=== PATIENT | male | born 1960 | race Caucasian/White ===

== ENCOUNTER 2022-03-15 15:11 | Outpatient (REF) | payer MEDICARE, SELFPAY ==
[2022-03-15 16:31] LABS: Abs Immature Grans 0.05 10^3/uL (0.0-0.06); Absolute Basophil Count 0.05 10^3/uL (0.0-0.2); Absolute Eosinophil Count 0.14 10^3/uL (0.0-0.7); Absolute Lymphocyte Count 1.85 10^3/uL (1.2-3.4); Absolute Monocyte Count 0.64 10^3/uL (0.1-0.8); Absolute Neutrophil Count 7.77 10^3/uL (1.2-6.7); Basophils % 0.5; Eosinophils % 1.3; HCT 49.6 % (40.0-50.0); HGB 16.4 g/dL (13.5-17.5); Immature Grans % 0.5; Lymphocytes % 17.6; MCH 32.3 pg (27.0-33.0); MCHC 33.1 % (32.0-36.0); MCV 98 fL (80-95); MPV 10.1 fL (8.0-11.0); Monocytes % 6.1; Platelet Count 311 10^3/uL (130-400); RBC 5.08 10^6/uL (4.36-5.78); RDW 13.3 % (11.8-14.1); RDW-SD 48.2 fL
[2022-03-15 17:07] LABS: ALT 43 U/L (16-63); AST 46 U/L (15-37); Albumin 4.1 g/dL (3.4-5.0); Alkaline Phosphatase 88 U/L (46-116); Anion Gap 7.1 mmol/L (3-11); BUN 12 mg/dL (7-18); Bilirubin, Total 0.5 mg/dL (0.2-1.0); CO2 30.9 mmol/L (21.0-32.0); CREATININE 1.1 mg/dL (0.70-1.30); Calcium 9.5 mg/dL (8.5-10.1); Chloride 99 mmol/L (98-107); Estimated GFR 77.33 (mL/min/1.73m2); Glucose 118 mg/dL (74-106); Potassium 4.7 mmol/L (3.5-5.1); Sodium 137 mmol/L (136-145); Total Protein 7.7 g/dL (6.4-8.2)
[2022-03-15 17:11] LABS: Hemoglobin A1C 5.6 % (<5.7)
== END 2022-03-15 15:12 | disposition home or self-care (01) ==
LOC: NCHCN 15:11
PROVIDERS: Visit Provider Nurse Practitioner Family
DX: I10 Essential (primary) hypertension (principal); R73.9 Hyperglycemia, unspecified
CPT/HCPCS: 80053; 83036; 85025

== ENCOUNTER 2022-07-12 13:20 | Emergency (ER) | payer MEDICARE, SELFPAY ==
[2022-07-12] VITALS (21 sets, daily range): BP systolic 91–123; BP diastolic 63–80; PULSE 79–246; RESP 14–37; TEMP 36.4; O2SAT 86–97
--- NOTE | 2022-07-12 13:15 | RT.EKG_ITS ---
APPROVED REPORT Exam: Resting ECG Reason for Exam: Chest Pain Patient Location: E HR:237 bpm ECG Measurements Heart Rate 237 AXIS NH 175 P 107 QRSd 126 QRS -62 QT [id number] T 94 QTc 0 Conclusion Wide-QRS tachycardia...V-rate>(220-age), QRSd>120 IVCD, consider RBBB...QRSd>120mS, terminal axis(90,270) Regular wide-complex tachycardia at a rate of 237 bpm. No prior for comparison. Concerning for V. t ach.
[2022-07-12] MEDS: Adenosine 6 MG/2 ML VIAL (13:40)
--- NOTE | 2022-07-12 13:54 | W.EDPROG ---
Date of service: 07/12/22 Time of Service: 13:54 Medical Decision Making This patient arrived during my shift and was cared for by an advanced practitioner. Please see her notes for complete details. In brief this is a 61 yo M w/history of tobacco use & HTN arriving via private vehicle in the setting of chest pain and lightheadedness. Initial ECG concerning for VT. Patient initially received adenosine * 2 (6mg & 12mg) to treat SVT w/aberrancy but had no pauses nor changes on continuous ECG. 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 Following infusion on 100mg of procainamide patient convert to NSR. Patient had not obvious ischemic changes on repeat ECG but given age and risk factors w/elevated tropoin likely secondary to type II NSTEMI patient transferred to [facility] for LHC & CCU-level care. Discharge Plan Disposition Patient Disposition: Transfer-Acute Inpatient Care Specific Acute Inpt Facility: [facility] Discharge Details Clinical Impression: V-tach, Non-ST elevation [place] (NSTEMI) Primary Care Provider: Megha Hinojosa ED Provider: Mayela Edmond Home Meds and New Rx's Prescriptions: No Action clonazepam 1 mg Tablet 1 mg PO TID Rx Instructions: 2mg at HS sildenafil 100 mg Tablet 100 mg PO DAILY PRN Rx Instructions: administer 30 minutes to 4 hours before activity cranberry 400 mg Capsule 400 mg PO DAILY Rx Instructions: administer with a meal lisinopril-hydrochlorothiazide 10-12.5 mg Tablet 1 tab PO DAILY testosterone cypionate 200 mg/mL Oil 200 mg IM Q2W Discharge Data Discharge Date/Time-TO BE ENTERED AT DEPARTURE: 07/12/22 16:18
--- NOTE | 2022-07-12 14:00 | RT.EKG_ITS ---
APPROVED REPORT Exam: Resting ECG Reason for Exam: [facility] Patient Location: E HR:98 bpm ECG Measurements Heart Rate 98 AXIS NJ 123 P 59 QRSd 92 QRS 85 QT 312 T -52 QTc 398 Conclusion Sinus rhythm...normal P axis, V-rate 60- 99 Abnormal T, consider ischemia, diffuse leads...T <-0.20mV, ant/lat/inf Narrow complex normal sinus rhythm at a rate of 98. Normal axis. Inferior T wave inversions. Mild ST segment elevation in aVL. Compared to prior sinus rhythm has replaced likely V. tach.
[2022-07-12] MEDS: MAGNESIUM SULFATE 2 GM/50 ML BAG IVPB (14:09)
[2022-07-12 14:19] LABS: Abs Immature Grans 0.11 10^3/uL (0.0-0.06); Absolute Basophil Count 0.07 10^3/uL (0.0-0.2); Absolute Eosinophil Count 0.03 10^3/uL (0.0-0.7); Absolute Neutrophil Count 14.52 10^3/uL (1.2-6.7); Basophils % 0.4; Eosinophils % 0.2; HCT 47.8 % (40.0-50.0); HGB 15.8 g/dL (13.5-17.5); Immature Grans % 0.6; Lymphocytes % 5.3; MCH 31.9 pg (27.0-33.0); MCHC 33.1 % (32.0-36.0); MCV 96 fL (80-95); MPV 8.9 fL (8.0-11.0); Monocytes % 8.2; Neutrophils % 85.3; Platelet Count 276 10^3/uL (130-400); RBC 4.96 10^6/uL (4.36-5.78); RDW 13.8 % (11.8-14.1); RDW-SD 49.5 fL; WBC 17.02 10^3/uL (4.4-10.8)
--- NOTE | 2022-07-12 14:22 | ED.GENADUL_ITS ---
Discharge Plan Disposition Patient Disposition: Transfer-Acute Inpatient Care Specific Acute Inpt Facility: [facility] Discharge Details Clinical Impression: V-tach, Non-ST elevation [place] (NSTEMI) Primary Care Provider: Megha Hinojosa ED Provider: Mayela Edmond Home Meds and New Rx's Prescriptions: No Action clonazepam 1 mg Tablet 1 mg PO TID Rx Instructions: 2mg at HS sildenafil 100 mg Tablet 100 mg PO DAILY PRN Rx Instructions: administer 30 minutes to 4 hours before activity cranberry 400 mg Capsule 400 mg PO DAILY Rx Instructions: administer with a meal lisinopril-hydrochlorothiazide 10-12.5 mg Tablet 1 tab PO DAILY testosterone cypionate 200 mg/mL Oil 200 mg IM Q2W Discharge Data Discharge Date/Time-TO BE ENTERED AT DEPARTURE: 07/12/22 16:18 Medical Decision Making This 61-year-old male presents with report of chest pain and palpitations EKG was obtained 6 patient has evidence of suspected ventricular tachycardia on the in lead V4 V5 And looks like a narrow complex tachycardia Case is discussed with Dr. Barnes, Please see his documentation Initially we tried 6 mg subsequent by 12 mg of adenosine There is no responsiveness I then ordered 150 mg of amiodarone, however can consider for possible this atrial fibrillation with superimposed WPW, procainamide was ordered Patient received 100 mg of IV procainamide for 5 minutes and converted to normal sinus rhythm, he does have diffuse T wave inversions, his chest pain has resolved at this time He remained alert and oriented throughout the entirety of this evaluation Patient had a subsequent run of 6 beats of ventricular tachycardia Sinus rhythm Magnesium is 1.6, given 2 g of mag Potassium is 6.2, 66 4 g Calcium and IV, 10 mg of insulin IV, and 25 g of dextrose Check fingersticks every hour [facility] was consulted and Dr. Gotti is excepted patient in transfer Troponin resulted at 1446 Treat as non-STEMI as does not currently meet STEMI criteria. Will initiate heparin bolus and infusion for ACS, Plavix 600 mg, aspirin 324 Confirmed no risk factors for bleeding Full CODE STATUS, confirmed continue IV fluids at 100/cc an hour We will continue to check glucose every hour Denies any chest pain on reassessment, vitals have remained stable HPI General Date/Time Provider Initiated Documentation: 07/12/22 13:28 . HPI Narrative: This 61-year-old gentleman presents with palpitations/racing heart, has had chest pain indigestion throughout the day with lightheadedness. Denies history of similar symptoms in the past. Denies any new medications or alcohol. States he feels nauseous. Has some substernal chest pain information. Related Data Home Medications Medication Instructions Recorded Confirmed clonazepam 1 mg tablet 1 mg PO TID 07/12/22 07/12/22 cranberry 400 mg capsule 400 mg PO DAILY 07/12/22 07/12/22 lisinopril 10 1 tab PO DAILY 07/12/22 07/12/22 mg-hydrochlorothiazide 12.5 mg tablet sildenafil 100 mg tablet 100 mg PO DAILY PRN 07/12/22 07/12/22 testosterone cypionate 200 mg/mL 200 mg IM Q2W 07/12/22 07/12/22 intramuscular oil Allergies Allergy/AdvReac Type Severity Reaction Status Date / Time alprazolam [From Xanax] Allergy Unverified 07/12/22 15:14 diazepam [From Valium] Allergy Unverified 07/12/22 15:14 ibuprofen Allergy Unverified 07/12/22 13:27 methadone Allergy Unverified 07/12/22 13:27 nebivolol Allergy Unverified 07/12/22 13:27 prednisone Allergy Unverified 07/12/22 15:14 General Stated Complaint: Chest Pain MARISELA: 3 PFSH All Active Problems (Updated 07/14/22 @ 13:50 by BERNARD Howard) V-tach (Chronic) Non-ST elevation [place] (NSTEMI) (Acute) Social History Smoking/Tobacco Use Status: Current every day Tobacco Type: cigarettes Smoking risk assessment performed?: Yes Alcohol Intake: current Alcohol Intake frequency: holidays/special occasions only Substance use type: does not use Do you feel safe at home: Yes Do you feel safe in your relationship?: Yes Exam Narrative Exam Narrative: Patient is alert and oriented, diaphoretic, pupils equal round reactive to light and accommodation, lungs clear to auscultation, tachycardic, no abdominal tenderness, distal pulses intact, no calf swelling or tenderness, Course Vital Signs Vital signs: Vital Signs Temperature 36.4 C L 07/12/22 13:24 Pulse 239 H 07/12/22 13:24 Respiratory Rate 18 07/12/22 13:24 Blood Pressure 121/78 07/12/22 13:24 Pulse Oximetry 94 07/12/22 13:24 Temperature 36.4 C L 07/12/22 13:24 Pulse 94 H 07/12/22 14:14 Respiratory Rate 18 07/12/22 14:14 Respiratory Effort Normal, Non-Labored 07/12/22 13:26 Blood Pressure 108/76 07/12/22 14:14 Pulse Oximetry 97 07/12/22 14:14 Oxygen Delivery Method Nasal Cannula 07/12/22 14:14 Oxygen Flow Rate 2 07/12/22 14:14 Lab/Test Results Lab/Test Results: Laboratory Tests Range/Units 07/12/22 14:12 WBC (4.4-10.8) 10^3/uL 17.02 H RBC (4.36-5.78) 10^6/uL 4.96 Hgb (13.5-17.5) g/dL 15.8 Hct (40.0-50.0) % 47.8 MCV (80-95) fL 96 H MCH (27.0-33.0) pg 31.9 MCHC (32.0-36.0) % 33.1 RDW (11.8-14.1) % 13.8 Plt Count (130-400) 10^3/uL 276 MPV (8.0-11.0) fL 8.9 Immature Gran % 0.6 Neutrophils % 85.3 Lymphocytes % 5.3 Monocytes % 8.2 Eosinophils % 0.2 Basophils % 0.4 Nucleated RBC % (0.0-0.3) % 0.0 Absolute Neutrophils (1.2-6.7) 10^3/uL 14.52 H Absolute Lymphocytes (1.2-3.4) 10^3/uL 0.90 L Absolute Monocytes (0.1-0.8) 10^3/uL 1.40 H Absolute Eosinophils (0.0-0.7) 10^3/uL 0.03 Absolute Basophils (0.0-0.2) 10^3/uL 0.07 Critical Care Time Critical Care Time Attestation: Approximately 60 minutes of critical care time secondary to telemetry monitoring, antiarrhythmics secondary to ventricular tachycardia, diagnostic blood work, cardiology consultation, IV heparinization, clopidogrel loading, aspirin, diagnostic blood work interpretation, and ultimately transfer to tertiary care center for further evaluation
[2022-07-12 14:37] LABS: ALT 95 U/L (16-63); AST 77 U/L (15-37); Albumin 3.6 g/dL (3.4-5.0); Alkaline Phosphatase 94 U/L (46-116); Anion Gap 7.8 mmol/L (3-11); BUN 27 mg/dL (7-18); Bilirubin, Total 1.1 mg/dL (0.2-1.0); CO2 29.2 mmol/L (21.0-32.0); CREATININE 1.8 mg/dL (0.70-1.30); Calcium 8.9 mg/dL (8.5-10.1); Chloride 99 mmol/L (98-107); Estimated GFR 42.82 (mL/min/1.73m2); Glucose 155 mg/dL (74-106); Magnesium 1.6 mg/dL (1.8-2.4); Sodium 136 mmol/L (136-145)
--- NOTE | 2022-07-12 14:37 | NUR.NOTE ---
pt brought back to room 7 from triage when ekg was not able to be obtained in triage, cardiac care unit nurse showing HR in the 230's and patient becoming diaphoretic. pt quickly moved to room 3 and MD Barnes and BERNARD Edmond made aware. Pt placed on defibrillator pads, and cardiac care unit nurse. 2 large bore IVs placed. BERNARD Edmond at bedside. ekg obtained. question of vtach vs SVT. 6mg adenosine administered with no effect, verbal order for 12mg adenosine administered with no effect. Verbal order for 150mg amiodarone started but quickly discontinued and changed to 100mg Procainamide IVP, which was administered with good effect. pt remains on cardiac care unit nurse. report has been handed off to ELIAN Huang
[2022-07-12 14:43] LABS: Potassium 6.2 mmol/L (3.5-5.1); Troponin I 1443 ng/L (<or=60)
[2022-07-12 15:16] LABS: PTT Activated 26.7 sec (21.5-31.9)
[2022-07-12] MEDS: Aspirin 81 MG CHEW 324 MG CH (15:23)
[2022-07-12] MEDS: Calcium Gluconate 4.65 MEQ/10 ML VIAL 4.65 MG IVP (15:24)
[2022-07-12] MEDS: Clopidogrel 300 MG TAB 600 MG PO (15:32)
[2022-07-12] MEDS: Dextrose 25%-Water 10 ML SYR IVP (15:35)
[2022-07-12] MEDS: Insulin REGULAR-Human 100 UNITS/ML UNIT 10 UNITS IV (15:37)
[2022-07-12] MEDS: clonazePAM 1 MG TAB (15:43)
[2022-07-12] MEDS: Normal Saline 100 ML (15:44)
[2022-07-12] MEDS: Heparin in 0.45% NaCl 25,000 UNIT/250 ML BAG 10 UNIT IV (15:53)
--- NOTE | 2022-07-20 08:54 | NUR.NOTE ---
Nursing Note: Accessed pt chart for transfer documentation information.
== END 2022-07-12 16:18 | disposition short-term general hospital (02) ==
LOC: ER 13:44
PROVIDERS: Emergency Provider Physician Assistant; PCP Nurse Practitioner Family
DX: I21.4 Non-ST elevation (NSTEMI) myocardial infarction (principal); Z72.0 Tobacco use; I47.20 Ventricular tachycardia, unspecified
CPT/HCPCS: 36415; 36416; 80053; 82962; 93005; 96365; 96375; 96376; 99291; 83735; 84484; 85025; 85730; 93010; J0153; J0612

== ENCOUNTER 2022-08-19 02:07 | Outpatient (CLI) | payer MEDICARE, SELFPAY ==
--- NOTE | 2022-08-19 10:15 | DI.US_ITS ---
Exam(s) US SCROTUM EXAM: US SCROTUM CLINICAL HISTORY: SCROTAL MASS, N50.9, 2 MM FIXED, FIRM MASS IN LT LATERAL SCROTUM. TECHNIQUE: Scrotal ultrasound performed using grayscale, color-flow and spectral Doppler analysis. COMPARISON: No exams were available for comparison FINDINGS: Right testicle: 3.2 x 2.1 x 2.7 cm Left testicle: 3.1 x 2.1 x 2.9 cm Echogenicity: Normal. Contour: Smooth. Mass: None seen. Microlithiasis: None. Hydrocele: None Varicocele: None. Hernia: No peristalsing bowel loop identified. Epididymis: 1.6 centimeter spermatocele it of left epididymis. DOPPLER: Color: Symmetric and uniform, no hyperemia. Duplex: Bilateral testicular arterial waveforms visualized. IMPRESSION: Normal appearing bilateral testicles. 1.6 centimeter spermatocele head left epididymis. DATA REPOSITORY:
== END 2022-08-19 02:27 ==
LOC: DI 02:07
PROVIDERS: PCP Nurse Practitioner Family; Visit Provider Nurse Practitioner Family
DX: N50.9 Disorder of male genital organs, unspecified (principal); N43.41 Spermatocele of epididymis, single
CPT/HCPCS: 76870

== ENCOUNTER 2022-11-17 10:12 | Outpatient (CLI) | payer MEDICARE, SELFPAY ==
--- NOTE | 2022-11-17 10:30 | RT.EKG_ITS ---
APPROVED REPORT Exam: Resting ECG Reason for Exam: vt Patient Location: O HR:76 bpm ECG Measurements Heart Rate 76 AXIS [place] 105 P 75 QRSd 103 QRS 84 QT 386 T 3 QTc 435 Conclusion Sinus rhythm...normal P axis, V-rate 50- 99 Ventricular premature complex...V complex w/ short R-R interval Short KY interval...KY <110mS Borderline right axis deviation...QRS axis ( 81, 90) Baseline wander in lead(s) V1
== END 2022-11-17 10:13 | disposition home or self-care (01) ==
LOC: DI.CARD 10:40
PROVIDERS: PCP Nurse Practitioner Family; Referring Provider Nurse Practitioner Family; Visit Provider Internal Medicine Cardiovascular Disease
DX: I47.20 Ventricular tachycardia, unspecified (principal)
CPT/HCPCS: 93010

== ENCOUNTER → 2022-11-17 10:12 | Outpatient (BNVA) | payer MEDICARE, SELFPAY | PROVIDERS: PCP Nurse Practitioner Family; Referring Provider Nurse Practitioner Family; Visit Provider Internal Medicine Cardiovascular Disease | DX: Z45.09 Encounter for adjustment and management of other cardiac device (principal); I47.20 Ventricular tachycardia, unspecified | CPT/HCPCS: 93005; 93282 ==

== ENCOUNTER 2022-12-11 13:16 | Emergency (ER) | payer MEDICARE, SELFPAY ==
--- NOTE | 2022-12-11 13:15 | RT.EKG_ITS ---
APPROVED REPORT Exam: Resting ECG Reason for Exam: chest pressure Patient Location: E HR:85 bpm ECG Measurements Heart Rate 85 AXIS WI 131 P 77 QRSd 106 QRS 85 QT 348 T -2 QTc 415 Conclusion Sinus rhythm...normal P axis, V-rate Otherwise normal ECG
[2022-12-11 13:20] VITALS: BP 167/86; PULSE 90; RESP 18; TEMP 36.8; O2SAT 96
--- NOTE | 2022-12-11 14:00 | DI.RAD_ITS ---
Exam(s) XR CHEST 2V PA LATERAL EXAM: XR CHEST 2V PA LATERAL CLINICAL HISTORY: chest pain TECHNIQUE: 2D digital imaging was performed. COMPARISON: No exams were available for comparison FINDINGS: HEART: Normal size. Pacemaker. Leads overlie the chest. Aorta: Not dilated. PULMONARY VASCULATURE: Normal. LUNGS: Hyperinflation. Clear. No infiltrate. PLEURAL SPACE: No pleural effusion or pneumothorax. Chronic blunting at the right costophrenic angl e. BONE:Unremarkable for age. IMPRESSION: No acute abnormality. DATA REPOSITORY: RADIATION DOSE DELIVERED:
[2022-12-11 14:05] VITALS: RESP 18
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
[2022-12-11 14:09] LABS: Abs Immature Grans 0.02 10^3/uL (0.0-0.06); Absolute Basophil Count 0.03 10^3/uL (0.0-0.2); Absolute Eosinophil Count 0.07 10^3/uL (0.0-0.7); Absolute Lymphocyte Count 1.09 10^3/uL (1.2-3.4); Absolute Monocyte Count 0.82 10^3/uL (0.1-0.8); Absolute Neutrophil Count 7.76 10^3/uL (1.2-6.7); Basophils % 0.3; Eosinophils % 0.7; HCT 46.6 % (40.0-50.0); HGB 15.5 g/dL (13.5-17.5); Immature Grans % 0.2; Lymphocytes % 11.1; MCH 32.2 pg (27.0-33.0); MCHC 33.3 % (32.0-36.0); MCV 97 fL (80-95); MPV 9.5 fL (8.0-11.0); Monocytes % 8.4; Neutrophils % 79.3; Platelet Count 246 10^3/uL (130-400); RBC 4.82 10^6/uL (4.36-5.78); RDW 13.8 % (11.8-14.1); RDW-SD 49.4 fL; WBC 9.79 10^3/uL (4.4-10.8)
[2022-12-11 14:37] LABS: ALT 43 U/L (16-63); AST 39 U/L (15-37); Albumin 4.2 g/dL (3.4-5.0); Alkaline Phosphatase 108 U/L (46-116); Anion Gap 7.9 mmol/L (3-11); BUN 11 mg/dL (7-18); Bilirubin, Total 0.7 mg/dL (0.2-1.0); CO2 29.1 mmol/L (21.0-32.0); CREATININE 1.4 mg/dL (0.70-1.30); Calcium 9.3 mg/dL (8.5-10.1); Chloride 95 mmol/L (98-107); Estimated GFR 57.54 (mL/min/1.73m2); Glucose 112 mg/dL (74-106); Magnesium 1.9 mg/dL (1.8-2.4); Potassium 3.9 mmol/L (3.5-5.1); Sodium 132 mmol/L (136-145); TSH (W/Ref FT4) 0.79 uIU/mL (0.36-3.74); Total Protein 7.9 g/dL (6.4-8.2); Troponin I < 50 ng/L (<or=60)
--- NOTE | 2022-12-11 15:24 | DI.VRAD_ITS ---
PROCEDURE INFORMATION: Exam: XR Chest Exam date and time: 12/11/2022 2:57 PM Age: 62 years old Clinical indication: Other: Chest pain TECHNIQUE: Imaging protocol: Radiologic exam of the chest. Views: 2 views. COMPARISON: No relevant prior studies available. FINDINGS: Tubes, catheters and devices: Transvenous pacemaker leads in the heart Lungs: No focal consolidation.. Pleural spaces: Blunting in the right costophrenic angle may represent small right pleural effusion or pleural reaction.. Heart/Mediastinum: Unremarkable. No cardiomegaly. Bones/joints: Unremarkable. IMPRESSION: 1. Blunting in the right costophrenic angle may represent small right pleural effusion or pleural reaction.. 2. No focal consolidation.. Dictated and Authenticated by: Myrna Lopez MD. Ordering:JACINTO Pedro MD
== END 2022-12-11 15:42 | disposition home or self-care (01) ==
PROVIDERS: Emergency Provider Physician Assistant; PCP Nurse Practitioner Family
DX: R61 Generalized hyperhidrosis (principal); R42 Dizziness and giddiness; T42.6X5A Adverse effect of other antiepileptic and sedative-hypnotic drugs, initial encounter; R00.0 Tachycardia, unspecified; I10 Essential (primary) hypertension; I25.2 Old myocardial infarction; F17.210 Nicotine dependence, cigarettes, uncomplicated; Z95.810 Presence of automatic (implantable) cardiac defibrillator
CPT/HCPCS: 36415; 80053; 93005; 99283; 71046; 83735; 84443; 84484; 85025; 93010

== ENCOUNTER → 2022-12-23 00:57 | Outpatient (CLI) | payer MEDICARE, SELFPAY ==
--- NOTE | 2022-12-23 | DI.CTLCSR_ITS ---
Exam(s) CT CHEST LUNG CANCER SCREEN EXAM: CT CHEST LUNG CANCER SCREEN CLINICAL HISTORY: CIGARETTE SMOKER F17.210 SCREENING LUNG CANCER. TECHNIQUE: Imaging Protocol: Low Dose Technique CONTRAST MATERIAL: None COMPARISON: CR,XR XR CHEST 2V PA LATERAL from 12/11/2022 FINDINGS: CHEST: LUNGS: There is pleural based infiltrate in the lateral basal segment of the right lower lobe which i s associated with sys small right pleural effusion. No overlying rib destruction.. This requires fol low-up. There are no other focal right lung findings and there are no significant focal findings in t he left lung nor left pleural effusion. MEDIASTINUM: There is no obvious hilar nor mediastinal adenopathy. CARDIAC: Heart size is normal. There is no pericardial effusion.Pacemaker wire noted. Caliber of th oracic aorta is normal. OTHER: No adrenal masses evident. OSSEOUS: No significant osseous lesions.No fractures.. IMPRESSION: 1. There is pleural based infiltrate in the lateral basal segment of the right lower lobe which is as sociated with a small right pleural effusion. No overlying rib destruction. This requires close fol low-up to resolution to rule out malignancy. Recommend repeat CT scan in 3 months, earlier if clinic ally indicated. 2. There are no other focal lung findings and no obvious intrathoracic adenopathy evident on this non infused imaging study. 3. Lung RADS Cat 4B - Suspicious: Findings for which additional diagnostic testing and/or tissue samp ling is recommended. Lung-RADS 1.0 CATEGORIES: Category 0 - Prior chest CT exam(s) being located for comparison. Category 1 - Annual screening in 12 months. No nodules or definitely benign nodules. Category 2 - Annual screening in 12 months. Benign appearance. Nodules with low likelihood of becomin g active cancer. Category 3 - 6-month follow-up. Probably benign. Short-term follow-up suggested. Nodules with low lik elihood of becoming active cancer. Category 4A - 3-month follow-up and CT/PET if >8 mm in size. Suspicious finding. Findings which requi re additional testing. Category 4B - Findings which require additional testing and tissue sampling. Category 4X - Category 3 or 4 nodules with additional features or imaging findings that increases the suspicion of malignancy. Modifier S- Potentially clinically significant findings (non lung cancer) RADIATION DOSE DELIVERED: Total DLP DATA REPOSITORY: All CT scans at this facility are submitted to the National Radiology Data Registry (NRDR) Dose Index Registry (DIR) with the [employer] ([employer]). RADIATION OPTIMIZATION: All CT scans at this facility use at least one of these dose optimization te chniques: automated exposure control; mA and/or kV adjustment per patient size (includes targeted exa ms where dose is matched to clinical indication); or iterative reconstruction.
== END ==
PROVIDERS: PCP Nurse Practitioner Family; Visit Provider Nurse Practitioner Family
DX: F17.210 Nicotine dependence, cigarettes, uncomplicated (principal); Z12.2 Encounter for screening for malignant neoplasm of respiratory organs; R91.8 Other nonspecific abnormal finding of lung field
CPT/HCPCS: 71271

== ENCOUNTER 2023-02-03 16:22 | Outpatient (REF) | payer MEDICARE, SELFPAY ==
[2023-02-03 16:09] LABS: Hemoglobin A1C 5.6 % (<5.7)
[2023-02-03 16:11] LABS: Calculated LDL 116 mg/dL (<100); Cholesterol 186 mg/dL (<200); HDL Cholesterol 57 mg/dL (40-60); TSH (W/Ref FT4) 0.76 uIU/mL (0.36-3.74); Triglyceride 67 mg/dL (<150)
[2023-02-03 16:24] LABS: Vitamin D 25 Total 46.9 ng/mL (30-100)
== END 2023-02-03 16:23 | disposition home or self-care (01) ==
LOC: NCHCN 16:22
PROVIDERS: PCP Nurse Practitioner Family; Visit Provider Nurse Practitioner Family
DX: R73.03 Prediabetes (principal); F41.9 Anxiety disorder, unspecified; Z00.00 Encounter for general adult medical examination without abnormal findings
CPT/HCPCS: 80061; 82306; 83036; 84443

== ENCOUNTER 2023-03-04 14:57 | Outpatient (REF) | payer MEDICARE, SELFPAY ==
[2023-03-04 15:37] LABS: Anion Gap 7.5 mmol/L (3-11); BUN 11 mg/dL (7-18); CO2 27.5 mmol/L (21.0-32.0); CREATININE 0.9 mg/dL (0.70-1.30); Calcium 9.2 mg/dL (8.5-10.1); Chloride 92 mmol/L (98-107); Estimated GFR 97.78 (mL/min/1.73m2); Glucose 125 mg/dL (74-106); Potassium 4.7 mmol/L (3.5-5.1); Sodium 127 mmol/L (136-145)
== END 2023-03-04 14:58 | disposition home or self-care (01) ==
LOC: NCHCN 14:57
PROVIDERS: PCP Nurse Practitioner Family; Visit Provider Nurse Practitioner Family
DX: I10 Essential (primary) hypertension (principal)
CPT/HCPCS: 80048

== ENCOUNTER → 2023-03-21 03:15 | Outpatient (CLI) | payer MEDICARE, SELFPAY ==
--- NOTE | 2023-03-21 | DI.CT_ITS ---
Exam(s) CT CHEST WO EXAM: CT CHEST WO CLINICAL HISTORY: 3 MO F/U ABNL LUNG SCREENING CT,PULMONARY INFILTRATE.R91.8,PLEURAL EFFUSION. TECHNIQUE: Multi planar reconstructions were performed. CONTRAST MATERIAL: None COMPARISON: CR,XR XR CHEST 2V PA LATERAL from 12/11/[address] CHEST LUNG CANCER SCREEN from 12/23/2022 FINDINGS: CHEST: LUNGS: The previous pleural based basal segment of the right lower lobe is again noted. It has not d ecreased in size. Also has not significantly increased in size. Small amount of associated pleural effusion is unchanged. No new additional nodules evident in the right lung field. No significant fo robert findings in trachea and mainstem bronchi. No new findings in the opposite-left lung.. MEDIASTINUM: There is no obvious hilar nor mediastinal adenopathy. Visualized thyroid unremarkable. CARDIAC: Heart size remains normal. No pericardial effusion. Caliber of thoracic aorta is within no rmal limits.Caliber of the thoracic aorta is within normal limits. VISUALIZED UPPER ABDOMEN:No significant adrenal masses. OSSEOUS: No fractures nor significant osseous lesions, lytic nor blastic.. IMPRESSION: 1. Stable appearance of the right lower lobe findings described on the recent CT scan of 12/23/2022. This stability does not exclude the possibility of this being neoplastic. Tiny pleural effusions no t increased in size and there is no overlying rib destruction. Consider close follow-up including po ssible PET-CT scan. Other possibly would be for percutaneous CT-guided biopsy. RADIATION DOSE DELIVERED: 621.55mGy.cm Total DLP DATA REPOSITORY: All CT scans at this facility are submitted to the National Radiology Data Registry (NRDR) Dose Index Registry (DIR) with the [employer] (ACR). RADIATION OPTIMIZATION: All CT scans at this facility use at least one of these dose optimization te chniques: automated exposure control; mA and/or kV adjustment per patient size (includes targeted exa ms where dose is matched to clinical indication); or iterative reconstruction.
== END ==
PROVIDERS: PCP Nurse Practitioner Family; Visit Provider Nurse Practitioner Family
DX: R91.8 Other nonspecific abnormal finding of lung field (principal)
CPT/HCPCS: 71250

== ENCOUNTER 2023-03-25 13:32 | Outpatient (REF) | payer MEDICARE, SELFPAY ==
[2023-03-25 15:44] LABS: Anion Gap 4.3 mmol/L (3-11); BUN 12 mg/dL (7-18); CO2 31.7 mmol/L (21.0-32.0); CREATININE 0.9 mg/dL (0.70-1.30); Calcium 9.6 mg/dL (8.5-10.1); Chloride 95 mmol/L (98-107); Estimated GFR 97.78 (mL/min/1.73m2); Glucose 145 mg/dL (74-106); Potassium 4.5 mmol/L (3.5-5.1); Sodium 131 mmol/L (136-145)
== END 2023-03-25 13:33 | disposition home or self-care (01) ==
LOC: NCHCN 13:32
PROVIDERS: PCP Nurse Practitioner Family; Visit Provider Nurse Practitioner Family
DX: I10 Essential (primary) hypertension (principal)
CPT/HCPCS: 80048

== ENCOUNTER → 2023-04-08 09:10 | Outpatient (BNVA) | payer MEDICARE, SELFPAY | PROVIDERS: PCP Nurse Practitioner Family; Referring Provider Nurse Practitioner Family; Visit Provider Student in an Organized Health Care Education/Training Program | DX: R22.2 Localized swelling, mass and lump, trunk (principal); Z87.01 Personal history of pneumonia (recurrent) | CPT/HCPCS: 99215 ==

== ENCOUNTER 2023-04-11 10:01 | Outpatient (REF) | payer MEDICARE, SELFPAY ==
[2023-04-11 15:36] LABS: Anion Gap 8.6 mmol/L (3-11); BUN 17 mg/dL (7-18); CO2 29.4 mmol/L (21.0-32.0); Calcium 9.9 mg/dL (8.5-10.1); Chloride 98 mmol/L (98-107); Estimated GFR 86.16 (mL/min/1.73m2); Glucose 138 mg/dL (74-106); Potassium 4.6 mmol/L (3.5-5.1); Sodium 136 mmol/L (136-145)
== END 2023-04-11 10:02 | disposition home or self-care (01) ==
LOC: NCHCN 10:01
PROVIDERS: PCP Nurse Practitioner Family; Visit Provider Nurse Practitioner Family
DX: I10 Essential (primary) hypertension (principal)
CPT/HCPCS: 80048

== ENCOUNTER 2023-05-10 08:04 | Outpatient (CLI) | payer MEDICARE, SELFPAY ==
--- NOTE | 2023-05-10 08:00 | RT.EKG_ITS ---
APPROVED REPORT Exam: Resting ECG Reason for Exam: hx of Vtach, s/p LA Patient Location: O HR:66 bpm ECG Measurements Heart Rate 66 AXIS [place] 114 P 33 QRSd 105 QRS 55 QT 387 T -12 QTc 406 Conclusion Sinus rhythm...normal P axis, V-rate 50- 99 Multiple ventricular premature complexes...V complexes w/ short R-R intervls Borderline short KY interval...KY int <120mS
== END 2023-05-10 08:05 | disposition home or self-care (01) ==
LOC: DI.CARD 08:05
PROVIDERS: PCP Nurse Practitioner Family; Visit Provider Internal Medicine Cardiovascular Disease
DX: I47.20 Ventricular tachycardia, unspecified (principal); I21.4 Non-ST elevation (NSTEMI) myocardial infarction
CPT/HCPCS: 93010

== ENCOUNTER → 2023-05-10 12:41 | Outpatient (BNVA) | payer MEDICARE, SELFPAY | PROVIDERS: PCP Nurse Practitioner Family; Referring Provider Nurse Practitioner Family; Visit Provider Internal Medicine Cardiovascular Disease | DX: I10 Essential (primary) hypertension (principal); I25.2 Old myocardial infarction; Z95.810 Presence of automatic (implantable) cardiac defibrillator; I47.20 Ventricular tachycardia, unspecified | CPT/HCPCS: 93005; 99214 ==

== ENCOUNTER → 2023-05-18 10:11 | Outpatient (BNVA) | payer MEDICARE, SELFPAY | PROVIDERS: PCP Nurse Practitioner Family; Referring Provider Nurse Practitioner Family; Visit Provider Internal Medicine Cardiovascular Disease | DX: I47.20 Ventricular tachycardia, unspecified (principal) | CPT/HCPCS: 93282 ==

== ENCOUNTER 2023-06-06 09:59 | Emergency (ER) | payer MEDICARE, SELFPAY ==
[2023-06-06 10:05] VITALS: BP 175/102; PULSE 85; RESP 18; TEMP 36.7; O2SAT 97
[2023-06-06] MEDS: HYDROmorphone 2 MG/ML SYR IM (10:45)
[2023-06-06 10:56] LABS: Abs Immature Grans 0.03 10^3/uL (0.0-0.06); Absolute Basophil Count 0.03 10^3/uL (0.0-0.2); Absolute Eosinophil Count 0.13 10^3/uL (0.0-0.7); Absolute Lymphocyte Count 0.97 10^3/uL (1.2-3.4); Absolute Monocyte Count 0.71 10^3/uL (0.1-0.8); Absolute Neutrophil Count 5.79 10^3/uL (1.2-6.7); Basophils % 0.4; Eosinophils % 1.7; HCT 50.4 % (40.0-50.0); HGB 16.4 g/dL (13.5-17.5); Immature Grans % 0.4; Lymphocytes % 12.7; MCH 32.8 pg (27.0-33.0); MCHC 32.5 % (32.0-36.0); MCV 101 fL (80-95); MPV 9.5 fL (8.0-11.0); Monocytes % 9.3; Neutrophils % 75.5; Platelet Count 229 10^3/uL (130-400); RDW 14.4 % (11.8-14.1); RDW-SD 54.1 fL; WBC 7.66 10^3/uL (4.4-10.8)
[2023-06-06 11:05] LABS: Anion Gap 8.2 mmol/L (3-11); BUN 13 mg/dL (7-18); CO2 31.8 mmol/L (21.0-32.0); Calcium 9.1 mg/dL (8.5-10.1); Chloride 99 mmol/L (98-107); Estimated GFR 86.16 (mL/min/1.73m2); Glucose 121 mg/dL (74-106); Sodium 139 mmol/L (136-145)
--- NOTE | 2023-06-06 11:32 | DI.CT_ITS ---
Exam(s) CT LUMBAR SPINE SI JOINTS WO EXAM: CT LUMBAR SPINE SI JOINTS WO CLINICAL HISTORY: back pain. TECHNIQUE: Imaging Protocol: Axial computed tomography images with coronal and sagittal reformatted images were created and reviewed COMPARISON: No exams were available for comparison FINDINGS: Bones: The last intervertebral disc space is designated the L5/S1 level for the numbering purpose of this examination. The vertebral body heights are well maintained. There is disc space narrowing at L 1-L2 and L2-L3. Endplate osteophytes are seen at all levels of the lumbar spine. Degenerative facet arthropathy is seen at several levels of the lumbar spine. No fracture is seen. There is posterior spinal surgery at L5-S1 with posterior rods and pedicle screws at L5 and S1. There is is a discectom y at L5-S1. There is a nerve stimulator which enters the spinal canal at L3-3 L4. T12-L1: No disc herniations or bulges are present. No central spinal canal or neural foraminal steno sis. L1-2: No disc herniations or bulges are present. No central spinal canal or neural foraminal stenosi s. L2-3: There is a diffuse disc bulge resulting in mild narrowing of the central spinal canal. No sig nificant neural foraminal stenosis is present. L3-4: There is a mild diffuse disc bulge. There is mild narrowing of the central spinal canal. No significant neural foraminal stenosis. L4-5: No disc herniations or bulges are present. There are degenerative changes of the facets. Ther e is [id number] narrowing of the left neural foramen. No significant right neural foraminal st enosis. L5-S1: No disc herniations or bulges are present. No central spinal canal or neural foraminal stenos is. Soft Tissues: There are postsurgical changes seen in the right sacrum. Degenerative changes are see n at the sacroiliac joints. The paraspinal soft tissues are unremarkable. IMPRESSION: 1. Multilevel degenerative changes in the lumbar spine resulting in central spinal canal narrowing at L2-3 and L3-L4. There is also narrowing of the left neural foramen at L4-L5. 2. Postsurgical changes at the L5-S1 level. 3. Presence of a neural stimulator device. 4. No acute fracture or subluxation. RADIATION DOSE DELIVERED: 1,026.4mGy.cm Total DLP 1,026.4mGy.cm Total DLP DATA REPOSITORY: All CT scans at this facility are submitted to the National Radiology Data Registry (NRDR) Dose Index Registry (DIR) with the [employer] (ACR). RADIATION OPTIMIZATION: All CT scans at this facility use at least one of these dose optimization te chniques: automated exposure control; mA and/or kV adjustment per patient size (includes targeted exa ms where dose is matched to clinical indication); or iterative reconstruction.
[2023-06-06 12:00] VITALS: BP 139/80; PULSE 61; O2SAT 96
[2023-06-06 12:16] VITALS: BP 140/86; PULSE 66; O2SAT 97
[2023-06-06 12:31] VITALS: BP 132/77; PULSE 60; O2SAT 96
[2023-06-06 12:46] VITALS: BP 173/101; PULSE 64; O2SAT 97
[2023-06-06 12:59] LABS: Bilirubin Negative (Negative); Blood Trace-intact (Negative); Clarity Clear (Clear); Glucose Negative (Negative); Ketones Negative (Negative); Leukocyte Esterase Negative (Negative); Nitrite Negative (Negative); Specific Gravity 1.015 (1.005-1.025); Urobilinogen 0.2 mg/dL (Up to 0.2)
[2023-06-06 13:10] LABS: Bacteria Negative HPF (Negative); C & S Indicated? No; Casts Negative LPF (Negative); Crystals Negative HPF (Negative); Epithelial Cells Rare HPF (Negative); Mucus Negative (Negative); RBC 0-2 HPF (0-2); WBC 0-2 HPF (0-5)
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
== END 2023-06-06 13:41 | disposition home or self-care (01) ==
PROVIDERS: Emergency Provider Emergency Medicine; PCP Nurse Practitioner Family
DX: M54.50 Low back pain, unspecified (principal); G89.29 Other chronic pain; I25.2 Old myocardial infarction; I10 Essential (primary) hypertension; F17.210 Nicotine dependence, cigarettes, uncomplicated; Z79.82 Long term (current) use of aspirin; Z95.810 Presence of automatic (implantable) cardiac defibrillator
CPT/HCPCS: 80048; 96372; 99284; 72131; 81003; 81015; 85025; J1170

== ENCOUNTER → 2023-06-27 13:43 | Outpatient (BNVA) | payer MEDICARE, SELFPAY | PROVIDERS: PCP Nurse Practitioner Family; Referring Provider Nurse Practitioner Family; Visit Provider Urology | DX: R39.11 Hesitancy of micturition (principal) | CPT/HCPCS: 99214 ==

== ENCOUNTER → 2023-07-28 00:10 | Outpatient (CLI) | payer MEDICARE, SELFPAY ==
--- NOTE | 2023-07-28 11:09 | DI.RAD_ITS ---
Exam(s) XR CHEST 2V PA LATERAL EXAM: XR CHEST 2V PA LATERAL CLINICAL HISTORY: PRE SURGERY EVAL Z01.818 TECHNIQUE: 2D digital imaging was performed of the chest. Three images were obtained. PA and later al views were obtained. COMPARISON: CR,XR XR CHEST 2V PA LATERAL from 12/11/2022 FINDINGS: MEDIASTINUM: Normal. HEART: Normal. The single lead cardiac device is stable. PULMONARY VASCULATURE: Normal. LUNGS: The lungs are hyperinflated with flattened diaphragms suggesting underlying COPD. There is un changed scarring in the right costophrenic angle and right lung base. No focal consolidating infiltr ates are seen. PLEURAL SPACE: No pleural effusion or pneumothorax. BONE:Within normal limits for the patient's age. OTHER FINDINGS:Normal. IMPRESSION: No acute pulmonary findings. DATA REPOSITORY: RADIATION DOSE DELIVERED:
== END ==
PROVIDERS: PCP Nurse Practitioner Family; Visit Provider Nurse Practitioner Family
DX: Z01.818 Encounter for other preprocedural examination (principal)
CPT/HCPCS: 71046

== ENCOUNTER → 2023-08-10 00:51 | Outpatient (CLI) | payer MEDICARE, SELFPAY ==
--- NOTE | 2023-08-10 09:22 | DI.RAD_ITS ---
Exam(s) XR SACROILIAC JOINTS EXAM: XR SACROILIAC JOINTS CLINICAL HISTORY: SACROILITIS,M46.1,SPONDYLOSIS LUMBAR REGION,M47.816,H/O RADIOFREQUENCY ABLA. TECHNIQUE: 2D digital imaging was performed. COMPARISON: CT CT LUMBAR SPINE SI JOINTS WO from 06/06/2023 FINDINGS: Bones: No fracture is present. No bony destructive lesion is seen. Alignment is satisfactory. Post surgical changes at L5-S1. Spinal stimulator device SI Joint: Mild degenerative changes. Joints: Moderate to severe narrowing and periarticular spurring of both hips. Soft Tissue: Normal. IMPRESSION: Mild degenerative changes of both SI joints. Postsurgical changes at L5-S1. DATA REPOSITORY: RADIATION DOSE DELIVERED:
== END ==
PROVIDERS: PCP Nurse Practitioner Family; Visit Provider Anesthesiology Pain Medicine
DX: M46.1 Sacroiliitis, not elsewhere classified (principal); M47.816 Spondylosis without myelopathy or radiculopathy, lumbar region
CPT/HCPCS: 72202

== ENCOUNTER → 2023-11-07 12:43 | Outpatient (BNVA) | payer MEDICARE, SELFPAY | PROVIDERS: PCP Nurse Practitioner Family; Referring Provider Nurse Practitioner Family; Visit Provider Internal Medicine Cardiovascular Disease | DX: Z95.810 Presence of automatic (implantable) cardiac defibrillator (principal); I47.20 Ventricular tachycardia, unspecified | CPT/HCPCS: 99213 ==